=== PATIENT | female | born 1990 | race Caucasian/White ===

== ENCOUNTER 2016-10-01 15:50 | Inpatient (IN) | payer OTHER ==
[2016-10-01] VITALS (7 sets, daily range): BP systolic 93–114; BP diastolic 59–85
[~2016-10-01] VITALS: Ht 162.6 cm; Wt 55.3 kg
--- NOTE | 2016-10-01 09:15 | NUR ---
IT OPERATIONS ANALYST PATIENT RECEIVED FROM E.R. DEPT VIA [facility], ALERT AND ORIENTED, COMPLAINING OF ABDOMINAL PAIN 09/04, NEEDS ATTENDED, VITAL SIGNS OBTAINED AND WNL, PATIENT IS SCHEDULED FOR LAP APPENDECTOMY CONSENT SIGNED, CHECKLIST COMPLETED, BELONGINGS RECONCILED BUT PATIENT UNABLE TO SIGN AT THIS TIME, PATIENT TAKEN TO OR FOR SURGERY BY DR. SUAREZ. PATIENT IN STABLE CONDITION. Addendum: 10/01/16 at 1915 by IDALIA BRAUN RN TIME DOCUMENTED CORRECTION: 1914
--- NOTE | 2016-10-01 15:55 | NUR ---
PT BIB SLEF ABDOMINAL PAIN SINCE 0800- VOMITTED MULTIPLE TIMES TODAY. - DIARRHEA. GOWNED PT . AWAITING MD ORDER.
--- NOTE | 2016-10-01 16:03 | NUR ---
DR SANTACRUZ AT BEDSIDE FOR EVAL
[2016-10-01] MEDS ORDERED: IV NS 0.9% 1,000 ML ONE ×2 (16:11→18:18)
[2016-10-01] MEDS ORDERED: ONDANSETRON HCL/PF 4 MG/2 ML VIAL ONE (16:11)
[2016-10-01] MEDS ORDERED: HYDROMORPHONE 1 MG/1 ML DISP.SYRIN ONE ×2 (16:11→18:17)
[2016-10-01] MEDS ORDERED: IV SET PRIMARY PUMP SET 1 EA INFUS.SET MC ONE ×2 (16:11→20:59)
[2016-10-01 16:17] LABS: BASOPHILS # (AUTO) 0.5 /CMM (0.0-0.2); BASOPHILS % (AUTO) 2.7 % (0.0-2.0); EOSINOPHILS % (AUTO) 0.2 % (0.0-6.0); HEMATOCRIT 42 % (33-45); HEMOGLOBIN 13.8 g/dL (11.5-14.8); LYMPHOCYTES # (AUTO) 3.3 /CMM (0.8-4.8); LYMPHOCYTES % (AUTO) 16.8 % (20.0-44.0); MEAN CORPUSCULAR HEMOGLOBIN 29 PG (26.0-33.0); MEAN CORPUSCULAR HGB CONC 33 g/dl (31.0-36.0); MEAN CORPUSCULAR VOLUME 88 fL (82-100); MONOCYTES # (AUTO) 0.9 /CMM (0.1-1.30); MONOCYTES % (AUTO) 4.5 % (2.0-12.0); NEUTROPHILS # (AUTO) 14.8 /CMM (1.8-8.9); NEUTROPHILS % (AUTO) 75.8 % (43.0-81.0); PLATELET COUNT (AUTO) 262 /CMM (150-450); RDW COEFFICIENT OF VARIATION 13.4 (11.5-15.0); WHITE BLOOD COUNT (AUTO) 19.5 K/uL (4.3-11.0)
--- NOTE | 2016-10-01 16:21 | NUR ---
PT ALSO HAD 2 MONTHS AGO TOOK PILLS PER PET
--- NOTE | 2016-10-01 16:21 | NUR ---
LAC #20 IV ACCESS. BLOOD SAMPLE COLLECTED SENT TO LAB
[2016-10-01 16:24] LABS: CALCIUM, SERUM 9.1 mg/dL (8.5-10.1); CREATININE 0.7 mg/dL (0.6-1.3); POTASSIUM 3.4 mmol/L (3.5-5.1)
--- NOTE | 2016-10-01 16:27 | NUR ---
PT STILL UNABLE TO PROVIDE URINE SAMPLE AT THIS TIME DR SANTACRUZ AWARE
[2016-10-01 16:30] LABS: ALBUMIN 4.4 g/dL (3.4-5.0); BILIRUBIN,DIRECT 0.1 mg/dL (0.0-0.2); BILIRUBIN,TOTAL 0.5 mg/dL (0.2-1.0)
[2016-10-01] MEDS ORDERED: IV NS 0.9% 1,000 ML BAG IV ONE (16:30)
[2016-10-01] MEDS ORDERED: ONDANSETRON HCL/PF 4 MG/2 ML VIAL IVP ONE (16:30)
[2016-10-01] MEDS ORDERED: HYDROMORPHONE INJ 2 MG/ML DISP.SYRIN IV ONE (16:30)
--- NOTE | 2016-10-01 17:07 | NUR ---
LOCOMOTIVE OPERATOR AT BEDSIDE
--- NOTE | 2016-10-01 17:27 | NUR ---
URINE SAMPLE COLLECTED SENT TO LAB
[2016-10-01 17:42] LABS: APPEARANCE,URINE Clear (CLEAR); BILIRUBIN,URINE Negative (NEGATIVE); BLOOD, URINE Trace-intact Ery/uL (NEGATIVE); COLOR,URINE Yellow (YELLOW); KETONES,URINE 40 (NEGATIVE); LEUKOCYTE ESTERASE ,URINE Negative (NEGATIVE); NITRITE, URINE Negative (NEGATIVE); PH,URINE 7.5 (5.0-8.0); PROTEIN,URINE Negative (NEGATIVE); UGLUCOSE Negative (NEGATIVE); UROBILINOGEN,URINE 0.2 EU/dL (0.2)
[2016-10-01 17:51] LABS: BACTERIA,URINE Moderate /HPF (None Seen); SQUAMOUS EPITHELIAL CELL,UR Many /HPF (None Seen); WBC,URINE 0-2 /HPF (0-3)
--- NOTE | 2016-10-01 17:58 | NUR ---
CALLED (CAT SWAMPER SURGEON), TRANSFERRED CALL TO
--- NOTE | 2016-10-01 17:59 | NUR ---
EKATERINA SANTAMARIA, KIMMIE FOSTER SWIFT TENDER
--- NOTE | 2016-10-01 17:59 | NUR ---
CALLED NURSING SUP. FOR MS BED
[2016-10-01] MEDS ORDERED: HYDROMORPHONE 1 MG/1 ML DISP.SYRIN IV ONE (18:00)
[2016-10-01] MEDS ORDERED: PIPERACILLIN /TAZOBACTAM 3.375 G in IV D5W 50 ML IV ONE (18:00)
[2016-10-01] MEDS ORDERED: IV NS 0.9% 1,000 ML IV ONE (18:00)
--- NOTE | 2016-10-01 18:37 | NUR ---
GAVE REPORT TO IDALIA SELF [facility] APP[facility]. DR SUAREZ SURGEON AT BEDSIDE
[2016-10-01] MEDS ORDERED: ONDANSETRON HCL/PF 4 MG/2 ML VIAL IVP PRN (19:00)
[2016-10-01] MEDS ORDERED: MAGNESIUM HYDROXIDE 30 ML UDC PO PRN (19:00)
[2016-10-01] MEDS ORDERED: HYDROCODONE/APAP 5/325MG 1 EACH TABLET PO PRN (19:00)
[2016-10-01] MEDS ORDERED: HYDROMORPHONE 1 MG/1 ML DISP.SYRIN IV PRN (19:00)
[2016-10-01] MEDS ORDERED: ZOLPIDEM TARTRATE 5 MG TABLET PO PRN (19:00)
[2016-10-01] MEDS: PANTOPRAZOLE 40 MG VIAL IV SCH (19:00)
[2016-10-01] MEDS ORDERED: ACETAMINOPHEN 325 MG TABLET PO PRN (19:00)
[2016-10-01] MEDS ORDERED: Z GUARD REMEDY 2 OZ OINT TP PRN (19:00)
[2016-10-01] MEDS ORDERED: SUCCINYLCHOLINE CHLORIDE 20 MG/ML VIAL ONE (19:04)
[2016-10-01] MEDS ORDERED: FENTANYL PF 250MCG/5ML AMPUL ONE (19:04)
[2016-10-01] MEDS ORDERED: ROCURONIUM BROMIDE 50 MG/5 ML ONE (19:05)
[2016-10-01] MEDS ORDERED: BUPIVACAINE MPF 0.5% W/EPI INJ 30 ML VIAL ONE (19:11)
--- NOTE | 2016-10-01 19:15 | NUR ---
RN NOTES PATIENT WAITING TO BE TRANSFERRED TO OR FOR APPENDECTOMY.
[2016-10-01 19:35] LABS: INR 0.95 (0.87-1.13); PROTHROMBIN TIME 10.1 SECS (9.5-12.7)
[2016-10-01] MEDS ORDERED: IV LR 1000 ML 1,000 ML ONE (20:28)
[2016-10-01] MEDS ORDERED: ANESTHESIA TRAY IN PYXIS 1 EA TRAY MC ONE (20:29)
[2016-10-01] MEDS ORDERED: MORPHINE SULFATE INJ 4 MG/ML DISP.SYRIN IV PRN ×2 (20:30→21:00)
--- NOTE | 2016-10-01 20:45 | NUR ---
RN NOTES PATIENT RETURNED FROM OR S/P APPENDECTOMY BY DR. SUAREZ. PATIENT AO X 3, ABLE TO MAKE NEEDS KNOW. NO ACUTE DISTRESS NOTED. VS WNL. THREE ABDOMINAL SURGICAL INCISIONS WITH DRESSINGS INTACT. IV SITE PATENT, INTACT; FLUSHED. ON LOW BED WITH BILATERAL UPPER SIDE RAILS UP. CALL LIGHT WITHIN EASY REACH. WILL CONTINUE TO MONITOR.
[2016-10-01] MEDS ORDERED: SECONDARY IV SET 1 EA INFUS.SET MC ONE (20:59)
[2016-10-01] MEDS: IV D5/0.45 NACL W/20 MEQ KCL 1L IV PRN ×2 (21:03)
[2016-10-01] MEDS: oxyCODONE/APAP (5/325 MG) 1 UDTAB TABLET PO PRN (21:28)
[2016-10-01] MEDS ORDERED: diphenhydrAMINE HCL 50 MG CAPSULE ONE (23:02)
--- NOTE | 2016-10-01 23:08 | NUR ---
RN NOTES PATIENT C/O GENERALIZED ITCHINESS. BENADRYL GIVEN ORDERED. WILL CONTINUE TO MONITOR.
[2016-10-01] MEDS ORDERED: diphenhydrAMINE HCL 50 MG CAPSULE PO PRN (23:30)
[2016-10-02] VITALS: BP 99/52
[2016-10-02 01:00] VITALS: BP 96/47
[2016-10-02 02:00] VITALS: BP 95/46
[2016-10-02] MEDS: oxyCODONE/APAP (5/325 MG) 1 UDTAB TABLET PO PRN ×3 (02:24→15:02)
[2016-10-02] MEDS: ANCEF 1 GM/50 ML D5W IV SCH ×4 (04:07→11:46)
[2016-10-02 05:00] VITALS: BP 93/41
--- NOTE | 2016-10-02 06:04 | NUR ---
RN NOTES PATIENT IN BED ASLEEP, RESPIRATIONS EVEN. NEEDS ATTENDED. SAFETY PRECAUTIONS AND COMFORT MEASURES IN PLACE. WILL GIVE REPORT TO DAY SHIFT FOR CONTINUITY OF CARE.
[2016-10-02 06:35] LABS: HEMATOCRIT 34 % (33-45); HEMOGLOBIN 11.3 g/dL (11.5-14.8); LYMPHOCYTES # (AUTO) 0.9 /CMM (0.8-4.8); LYMPHOCYTES % (AUTO) 6.6 % (20.0-44.0); MEAN CORPUSCULAR HEMOGLOBIN 30 PG (26.0-33.0); MEAN CORPUSCULAR HGB CONC 34 g/dl (31.0-36.0); MEAN CORPUSCULAR VOLUME 90 fL (82-100); MONOCYTES # (AUTO) 0.4 /CMM (0.1-1.30); MONOCYTES % (AUTO) 3.1 % (2.0-12.0); NEUTROPHILS # (AUTO) 12.2 /CMM (1.8-8.9); NEUTROPHILS % (AUTO) 90.3 % (43.0-81.0); PLATELET COUNT (AUTO) 199 /CMM (150-450); RDW COEFFICIENT OF VARIATION 14.1 (11.5-15.0); RED BLOOD CELL COUNT(AUTO) 3.77 MIL/uL (4.0-5.2); WHITE BLOOD COUNT (AUTO) 13.6 K/uL (4.3-11.0)
[2016-10-02 06:47] LABS: CALCIUM, SERUM 7.7 mg/dL (8.5-10.1); CREATININE 0.5 mg/dL (0.6-1.3); MAGNESIUM 1.8 mg/dL (1.8-2.4); PHOSPHORUS 3.4 mg/dL (2.5-4.9); POTASSIUM 4.2 mmol/L (3.5-5.1)
--- NOTE | 2016-10-02 07:27 | NUR ---
RN MS NOTES PATIENT ASLEEP BUT EASILY AROUSABLE, ALERT AND ORIENTED, NO SHORTNESS OF BREATH, NO DISTRESS NOTED, VITAL SIGNS SHOWS LOW BLOOD PRESSURE THROUGHOUT THE NIGHT, BUT PATIENT IS IN STABLE CONDITION, STATING ITS HER BASELINE BP, PATIENT ABLE TO TOLERATE PAIN AT THIS TIME AND WENT BACK TO SLEEP, NEEDS ATTENDED AND MET, CALL LIGHT WITHIN REACH, WILL CONTINUE TO MONITOR.
[2016-10-02] MEDS ORDERED: PANTOPRAZOLE 40 MG TABLET.DR PO SCH (07:30)
[2016-10-02 08:00] VITALS: BP 79/48
--- NOTE | 2016-10-02 08:54 | NUR ---
RN MS NOTES PATIENT SEEN AND EXAMINED BY JAXON FRANZ FOR DISCHARGE, DR. SUAREZ GAVE PRESCRIPTION FOR ANTIBIOTIC AND PAIN MEDICATION, INSTRUCTED PATIENT OK TO SHOWER THEN COVER HARRIS WITH DRESSING, AND TO FOLLOW UP WITH DR. SUAREZ IN 1 WEEK FOR HARRIS REMOVAL. Addendum: 10/02/16 at 0856 by IDALIA BRANU RN ADDENDUM: PATIENT COMPLAINED OF GAS, AWARE AND ORDERED DULCOLAX 5MG X1 NOW.
[2016-10-02] MEDS ORDERED: BISACODYL (5 MG) 5 MG TABLET.DR PO ONE (09:00)
[2016-10-02] MEDS: IV D5/0.45 NACL W/20 MEQ KCL 1L IV PRN ×2 (13:45)
[2016-10-02 16:00] VITALS: BP 100/69
[2016-10-02] MEDS ORDERED: METR500T PO (18:08)
[2016-10-02] MEDS ORDERED: CIPR-262 PO (18:08)
--- NOTE | 2016-10-02 18:45 | NUR ---
RN MS NOTES PATIENT SEEN BY KIMMIE NG, INFORMED OF LOW SBP THROUGHOUT THE SHIFT, STATED ITS FINE, DISCHARGE INSTRUCTIONS PROVIDED TO PATIENT AND VERBALIZED UNDERSTANDING, PRESCRIPTION HANDED TO PATIENT AND EXPLAINED DIRECTIONS, BELONGINGS RECONCILED, SKIN ASSESSMENT COMPLETED, PHOTOS TAKEN OF ABDOMEN WITH 3 INCISION SITES WITH HARRIS, COVERED WITH GAUZE, PATIENT ABLE TO PASS GAS, AMBULATES IN THE HALLWAY, ABLE TO TOLERATE PAIN AT THIS TIME, NO S/SX OF DISTRESS NOTED, TOLERATED DINNER WELL, PIV REMOVED AND TAPED WITH GAUZE, ALL NEEDS ATTENDED, PATIENT WILL BE PICKED UP BY A FAMILY MEMBER.
[2016-10-02] MEDS: PANTOPRAZOLE 40 MG VIAL IV SCH (19:00)
--- NOTE | 2016-10-02 19:54 | NUR ---
PATIENT DISCHARGED VIA WHEEL CHAIR IN GOOD AND STABLE CONDITION, NO SOB, NO DISTRESS. ABLE TO AMBULATE WITH ASSISTANCE. BELONGINGS GIVEN TO PATIENT. PATIENT PICKED UP BY FAMILY MEMBERS VIA PRIVATE CAR.
== END 2016-10-02 19:45 | disposition home or self-care (01) | DRG 225 ==
LOC: ER 16:55 → MEDSG2 18:28
PROVIDERS: ADMIT Nurse Practitioner Acute Care; ATTEND Nurse Practitioner Acute Care
PROC: 0DTJ4ZZ Resection of Appendix, Percutaneous Endoscopic Approach (ICD-10-PCS; principal; 2016-10-01 19:15)
DX: K35.80 Unspecified acute appendicitis (principal)
CPT/HCPCS: 36415; 72128-TC; 76856-TC; 80048-TC; 80076-TC; 81000-TC; 83690-TC; 83735-TC; 84100-TC; 84703-TC; 85025-TC; 85610-TC; 85730-TC; 87081-TC; 87086-TC; 88304-TC; 88305-TC; A4606; J0330; J0690; J1100; J1170; J1885; J2270; J2405; J2543; J2704; J3010; J3480; J3490; J7030; J7060; J7120; Q0163; Z7610